=== PATIENT | male | born 1970 | race Caucasian/White ===

== ENCOUNTER 2016-12-02 09:58 | Outpatient (CLI) | payer OTHER ==
--- NOTE | 2016-12-02 13:44 | DIAGNOSTIC IMAGING REPORT ---
PROCEDURE: CT ABDOMEN WITHOUT CONTRAST INDICATION: LUQ PAIN TECHNIQUE: Axial CT images were obtained through the abdomen without IV contrast. Coronal and sagittal reformations were created. COMPARISON: None. FINDINGS: Clear lung bases. Normal size heart. No hiatal hernia. The unenhanced appearance of the liver, gallbladder, adrenal glands, kidneys, and pancreas is normal. There are innumerable punctate coarse calcifications throughout the spleen consistent with prior granulomatous disease. The abdominal aorta is normal in its course and caliber. There are no suspicious calcifications, retroperitoneal adenopathy or masses. The stomach, upper bowel loops, and mesentery appears normal. Intact anterior abdominal wall. No free fluid, or inflammation. Partially imaged appendix appears normal. Unilateral left-sided L5 pars defect. Otherwise osseous structures. IMPRESSION: 1. No acute process. 2. 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 3. Left-sided unilateral L5 pars defect without obvious central canal or foraminal stenosis. All CT scans at this facility use dose modulation, iterative reconstruction, and/or weight-based dosing when appropriate to reduce radiation dose to as low as reasonably achievable.
== END 2016-12-02 23:00 ==
LOC: CT SRH 09:58
DX: R10.12 Left upper quadrant pain (principal)